=== PATIENT | female | born 1980 | race Caucasian/White ===

== ENCOUNTER 2021-12-05 13:26 | Emergency (ER) | payer OTHER ==
[2021-12-05 14:51] LABS: HEMOGLOBIN 7.4 gm/dl (12.3-15.3); RED BLOOD COUNT 4.03 M/UL (4.00-5.10); WHITE BLOOD COUNT 10.4 K/UL (4.5-11.0)
[2021-12-05 15:14] LABS: BUN/CREATININE RATIO 21 (0-10)
[2021-12-05] MEDS ORDERED: BACTRIM 400-801 EACH PO (20:25)
== END 2021-12-05 16:02 | disposition home or self-care (01) ==
LOC: ER1 13:26 → CDU 18:47 → ER1 18:47 → CDU 12-06 07:31
PROVIDERS: Student in an Organized Health Care Education/Training Program
DX: L03.113 Cellulitis of right upper limb (principal); M60.9 Myositis, unspecified; R00.0 Tachycardia, unspecified; F17.210 Nicotine dependence, cigarettes, uncomplicated
CPT/HCPCS: 73080; 73201; 80053; 83605; 85025; 87040; 96365; 96366; 96375; 99284; J1885; J3370; J7030; Q9967